=== PATIENT | male | born 1950 | race Two or more races ===

== ENCOUNTER 2017-03-13 07:34 | Day surgery (SDC) | payer MEDICARE ==
[2017-03-09 09:36] VITALS: BMI 27.8
[~2017-03-13 07:34] MED LIST: LACTATED RINGERS 1,000 ML IV SCH
[2017-03-13 07:59] VITALS: TEMP 98.3
[2017-03-13 08:14] LABS: Glucose,Whole Blood 128 mg/dL (75-99)
[2017-03-13] MEDS ORDERED: PROPOFOL 10 MG/ML 20 ML VIAL IV ONE (08:33)
[2017-03-13 09:26] VITALS: BP 129/68; PULSE 53
--- NOTE | 2017-03-13 09:35 | P.PCN ---
Date of Procedure: 03/13/17 Procedure(s) Performed: Procedure: Total colonoscopy. Preoperative diagnosis: Screening for neoplasia. Postoperative diagnosis: Sigmoid diverticulosis with no evidence of acute diverticulitis, strictures, polyps or cancer. Preparation: HalfLytely prep. Sedation: Was provided by anesthesia. Brief clinical history: The patient is a 66-year-old male who is referred for this evaluation for screening for neoplasia age being his risk factor. He has no abdominal complaints, bleeding or anemia. No family history of colon cancer. This would be his first colonoscopy. Procedure: With the patient on his left lateral decubitus position and after informed consent and adequate sedation, the perianal area was inspected and it did not show any fissures or fistulas. There were no masses felt on digital rectal examination. The Olympus CFQ 160L video colonoscope was then inserted in the rectum in the usual fashion and advanced to the cecum. There were several diverticular orifices seen scattered in the sigmoid with no evidence of acute diverticulitis or strictures. The mucosa appeared healthy. No polyps or tumors were seen. I retroflexed the endoscope in the rectum before the endoscope was withdrawn. The patient tolerated the procedure well. Plan: The patient was reassured. Discussed dietary measures. He will follow up with you as planned and I recommended repeat exam in 10 years.
[2017-03-13 09:37] VITALS: RESP 20
== END 2017-03-13 09:46 | disposition home or self-care (01) ==
LOC: ORWHC2ENDO 07:34
DX: Z12.11 Encounter for screening for malignant neoplasm of colon (principal); K57.30 Diverticulosis of large intestine without perforation or abscess without bleeding; E11.9 Type 2 diabetes mellitus without complications; Z79.84 Long term (current) use of oral hypoglycemic drugs; K21.9 Gastro-esophageal reflux disease without esophagitis; I10 Essential (primary) hypertension; E78.5 Hyperlipidemia, unspecified; E07.9 Disorder of thyroid, unspecified; Z87.01 Personal history of pneumonia (recurrent); Z79.82 Long term (current) use of aspirin; Z79.899 Other long term (current) drug therapy; M19.90 Unspecified osteoarthritis, unspecified site; Z88.5 Allergy status to narcotic agent; Z88.0 Allergy status to penicillin
CPT/HCPCS: J2704; G0121; 45378

== ENCOUNTER 2017-07-05 13:27 | Inpatient (IN) | payer MEDICARE ==
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
[2017-07-05] MEDS ORDERED: ACETAMINOPHEN TAB 500 MG TAB PO STA (15:05)
[2017-07-05] MEDS ORDERED: SODIUM CHLORIDE 0.9% 1,000 ML IV STA ×2 (15:05)
[2017-07-05] MEDS ORDERED: MECLIZINE 12.5 MG TAB PO STA (15:05)
[2017-07-05] MEDS ORDERED: RX INFO: IV CONTRAST WAS GIVEN 1 EACH MISC MISCELLANE PRN (15:07)
[2017-07-05 15:19] LABS: Basophils # (A) 0.1 k/uL (0-0.2); Basophils % (A) 1 %; Eosinophils # (A) 0.4 k/uL (0-0.7); Eosinophils % (A) 5 %; HCT 41.7 % (39.0-53.0); Lymphocytes # (A) 1.7 k/uL (1.0-4.8); Lymphocytes % (A) 22 %; MCH 28.8 pg (25.0-35.0); MCHC 33.5 g/dL (31.0-37.0); Mean Platelet Volume 7.2; Monocytes # (A) 0.5 k/uL (0-1.0); Monocytes % (A) 7 %; Neutrophils # (A) 5.2 k/uL (1.3-7.7); Neutrophils % (A) 64 %; Platelet Count 275 k/uL (150-450); RBC 4.85 m/uL (4.30-5.90); RDW 13.8 % (11.5-15.5); WBC 8.1 k/uL (3.8-10.6)
[2017-07-05 15:28] LABS: Calcium 10.1 mg/dL (8.4-10.2); Magnesium 1.7 mg/dL (1.6-2.3); Potassium 4.5 mmol/L (3.5-5.1)
[2017-07-05 15:44] LABS: Appearance,Urine Clear (Clear); Bilirubin,Urine Negative (Negative); Blood,Urine Negative (Negative); Color,Urine Light Yellow; Glucose,Urine (UA) Negative (Negative); Ketones,Urine Negative (Negative); Leukocyte Esterase,Urine Negative (Negative); Nitrite,Urine Negative (Negative); Protein,Urine Negative (Negative); Specific Gravity,Urine 1.002 (1.001-1.035); Urobilinogen,Urine <2.0 mg/dL (<2.0)
[2017-07-05 16:09] LABS: INR 1.1 (<1.2); Partial Thromboplastin Time 24.4 sec (22.0-30.0); Prothrombin Time 10.6 sec (9.0-12.0)
--- NOTE | 2017-07-05 16:32 | CT ---
EXAMINATION TYPE: CT brain wo con DATE OF EXAM: 07/05/2017 COMPARISON: NONE INDICATION: Headache and dizziness. DLP: 898.6 mGycm, Automated exposure control for dose reduction was used. CONTRAST: None CT of the brain is performed utilizing 3 mm thick sections through the posterior fossa and 3 mm thick sections through the remaining calvarium. Study is performed within 24 hours of arrival to the hosp [facility]. No abnormal hyperdensity is present to suggest an acute intracranial hemorrhage. No mass lesion is evident. No acute infarcts are evident. Ventricles and sulci are appropriate for the patient age. Paranasal sinuses are clear. Left mastoid air cells are clear. There is fluid-filled right mastoid air cells. IMPRESSIONS: 1. No acute intracranial process. 2. Right mastoiditis
[2017-07-05] MEDS ORDERED: VANCOMYCIN IV PER PHARMACY 1 EACH MISC MISCELLANE PRN (16:41)
[2017-07-05] MEDS ORDERED: ASPIRIN 325 MG TAB PO STA (16:42)
[2017-07-05] MEDS ORDERED: cefTRIAXone IN SWFI 1,000 MG/10 ML SYRINGE IVP STA (17:05)
[2017-07-05] MEDS ORDERED: VANCOMYCIN 2,000 MG in SODIUM CHLORIDE 0.9% 500 ML IVPB ONE (17:30)
--- NOTE | 2017-07-05 17:43 | XR ---
EXAMINATION TYPE: XR chest 2V DATE OF EXAM: 07/05/2017 COMPARISON: NONE HISTORY: Chest pain. TECHNIQUE: Frontal and lateral views of the chest are obtained. FINDINGS: There is no focal air space opacity, pleural effusion, or pneumothorax seen. The cardiac silhouette size is within normal limits. Multilevel spurring in the spine is present. IMPRESSION: No acute cardiopulmonary process.
[2017-07-05 18:33] VITALS: RESP 16; BMI 30.9
[2017-07-05] MEDS ORDERED: PRAVASTATIN SODIUM 80 MG TAB PO SCH (21:00)
[2017-07-05] MEDS ORDERED: tiZANidine 4 MG TAB PO SCH (21:00)
[2017-07-05] MEDS ORDERED: glipiZIDE 5 MG TAB PO SCH (21:00)
[2017-07-05] MEDS ORDERED: LEVOTHYROXINE 88 MCG TAB PO SCH (21:00)
[2017-07-05] MEDS ORDERED: ASPIRIN 81 MG PO SCH (21:00)
[2017-07-05 21:08] LABS: Glucose,Whole Blood 194 mg/dL (75-99)
[2017-07-05] MEDS ORDERED: MECLIZINE 12.5 MG TAB PO PRN (22:46)
[2017-07-05] MEDS ORDERED: ALBUTEROL NEBULIZED 2.5 MG/3 ML INHALATION PRN (23:06)
[2017-07-05] MEDS ORDERED: HYDROCORTISONE 1% CREAM 30 GM TUBE TOPICAL PRN (23:06)
[2017-07-05] MEDS ORDERED: PIOGLITAZONE 30 MG TAB PO SCH (23:30)
--- NOTE | 2017-07-05 23:38 | HP ---
HISTORY AND PHYSICAL CHIEF COMPLAINT: Dizziness and headache. HISTORY OF PRESENT ILLNESS: This 66-year-old gentleman with a past medical history of multiple medical problems including history of diabetes, GERD, hypertension, hyperlipidemia, history of eye injury left eye, being followed by Dr. Paul in the outpatient setting, was complaining of dizziness which started this morning. The patient was lightheaded and the patient also had vertiginous episodes and patient came to [facility] and was admitted for further evaluation and treatment. The evaluation in the ER showed a creatinine 1.70. Otherwise the patient also had a brain CT scan of the brain which showed apparent right mastoiditis. Otherwise the patient admitted for further evaluation and treatment. There is no history of fever, rigors. No history of headache, loss of consciousness, seizures. The patient also complains of vague chest pains. PAST MEDICAL HISTORY: History of diabetes, GERD, hypertension, hyperlipidemia, history of pneumonia and hypothyroidism. MEDICATIONS: Prior to admission include home medications are: 1. Synthroid 88 mcg. 2. Ecotrin 81 mg daily. 3. Ventolin 2.5 t.i.d. p.r.n. 4. Zanaflex 4 mg q.h.s. 5. DiaBeta 2.5 mg q.h.s. 6. Pravastatin 80 mg q.h.s. 7. Actos 30 mg q.h.s. 8. Hydrocortisone cream 2.5% application b.i.d. p.r.n. 9. Vitamin B12 5000 mcg p.o. daily. 10.Neurontin 300 mg p.o. q.i.d. 11.Glucophage 500 mg p.o. b.i.d. 12.Multivitamin 1 p.o. daily. 13.Metoprolol 25 mg p.o. b.i.d. 14.Vitamin D3 1000 units daily. 15.Vitamin C 500 mg p.o. daily. ALLERGIES: PENICILLIN. DILAUDID. FAMILY HISTORY: History of cancer, DVT. SOCIAL HISTORY: History of smoking. No history of alcohol intake. REVIEW OF SYSTEMS: ENT as mentioned earlier. Cardiovascular: No angina or palpitations. Respiratory: As mentioned earlier. GI no nausea. no dysuria. Allergy/Immunology: No asthma or hayfever. Musculoskeletal as mentioned earlier. Hematology/Oncology: No history of anemia. Endocrine: As mentioned earlier. CONSTITUTIONAL: As mentioned earlier. DERMATOLOGY: Negative. RHEUMATOLOGY: Negative. PSYCHIATRY: As mentioned earlier. Nervous system: No sensory dysfunction, but vision diminished in the left eye and left eye pupils are dilated. LABORATORY DATA: The labs are CBC within normal limits. Creatinine 1.70. ASSESSMENT: 1. Vertigo with possible benign positional vertigo, rule out vertebrobasilar transient ischemic attack. 2. Increased creatinine with chronic kidney disease. 3. Possible right mastoiditis. 4. Chest pains for evaluation. 5. Hypertension. 6. Diabetes mellitus Type 2. 7. Hyperlipidemia. 8. Degenerative joint disease. 9. History of pneumonia. 10.History of left eye injury. 11.History of nicotine dependence. RECOMMENDATIONS AND DISCUSSION: In this 66-year-old gentleman who presented with multiple complex medical issues, we will monitor the patient closely. Continue the current medications, management and symptomatic treatment. Otherwise resume the home medications and I will continue the continue the current medications and monitor blood sugars closely. Antiplatelet agents. I would also recommend Antivert. Otherwise continue to monitor and neurology and Cardiology consultation. Neurology and cardiology evaluation has been sought. See orders for details. Medication reconciliation has been done. Prognosis guarded. Further recommendations to follow. MMODL / IJN: [id number] /
[2017-07-05] MEDS: INSULIN ASPART 100 UNIT/ML 1 ML 10 ML VIAL SQ SCH (23:53)
[2017-07-05] MEDS: METOPROLOL TARTRATE 25 MG TAB PO SCH (23:54)
[2017-07-05] MEDS: GABAPENTIN 300 MG CAP PO SCH (23:55)
[2017-07-06 01:01] LABS: Hemoglobin A1C 7.6 % (4.0-6.0)
[2017-07-06 06:23] LABS: Glucose,Whole Blood 79 mg/dL (75-99)
[2017-07-06] MEDS: INSULIN ASPART 100 UNIT/ML 1 ML 10 ML VIAL SQ SCH ×4 (06:36→17:20)
[2017-07-06 06:48] LABS: Basophils # (A) 0.1 k/uL (0-0.2); Basophils % (A) 1 %; Eosinophils # (A) 0.4 k/uL (0-0.7); Eosinophils % (A) 5 %; HCT 38.9 % (39.0-53.0); Lymphocytes % (A) 28 %; MCH 29.1 pg (25.0-35.0); MCHC 33.5 g/dL (31.0-37.0); MCV 86.8 fL (80.0-100.0); Mean Platelet Volume 6.9; Monocytes # (A) 0.4 k/uL (0-1.0); Monocytes % (A) 6 %; Neutrophils % (A) 57 %; Platelet Count 253 k/uL (150-450); RBC 4.48 m/uL (4.30-5.90); RDW 14.1 % (11.5-15.5); WBC 7.1 k/uL (3.8-10.6)
[2017-07-06 06:59] LABS: Calcium 9.8 mg/dL (8.4-10.2); Potassium 4.8 mmol/L (3.5-5.1)
[2017-07-06] MEDS: METOPROLOL TARTRATE 25 MG TAB PO SCH (08:18)
[2017-07-06] MEDS: MECLIZINE 12.5 MG TAB PO SCH ×2 (08:18→16:13)
[2017-07-06] MEDS: GABAPENTIN 300 MG CAP PO SCH ×2 (08:18→12:55)
[2017-07-06] MEDS ORDERED: cefTRIAXone IN SWFI 1,000 MG/10 ML SYRINGE IVP SCH (09:00)
[2017-07-06] MEDS ORDERED: ASCORBIC ACID 500 MG TAB PO SCH (09:00)
[2017-07-06 11:59] LABS: Glucose,Whole Blood 110 mg/dL (75-99)
[2017-07-06] MEDS ORDERED: MULTIVITAMINS, THERA 1 EACH TAB PO SCH (12:00)
[2017-07-06] MEDS ORDERED: CYANOCOBALAMIN 500 MCG TAB PO SCH (12:00)
[2017-07-06] MEDS ORDERED: CHOLECALCIFEROL 1,000 UNIT TAB PO SCH (12:00)
--- NOTE | 2017-07-06 12:49 | P.CRDCN ---
History of Present Illness Consult date: 07/06/17 Requesting physician: [place] Consult reason: chest pain Chief complaint: Dizziness and lightheadedness, chest pain History of present illness: This is a pleasant 66-year-old gentleman who follows with as his primary care doctor. He does have a history of hypertension, diabetes, hyperlipidemia, nicotine dependence in the form of type smoking, occasional EtOH. According to the patient, he had been working outside on Sunday feeling well overall. He went to sit in his chair outside, had a rest, then he states upon standing he was trying to walk into the house and felt as though he was in a drunken stupor. He was very dizzy, very lightheaded, and had no balance. These symptoms apparently lasted the rest of the day Sunday, all day yesterday, and ultimately subsided this morning. When the patient was questioned about his primary care doctor's office about the symptoms he's been experiencing, he also states that for the past few months off and on he has been noticing exertional chest pressure and heaviness with associated shortness of breath. He states that when he sits down and rests his symptoms subside. A CAT scan of the brain was performed on arrival here which revealed right mastoiditis with no intracranial process. Patient was started on IV antibiotics in the emergency room. Chest x-ray did not reveal any cardiopulmonary process. Blood pressure 130/60 with a heart rate in the 50s to 60s, 98% on room air. Temperature 98.5. White blood cell count is normal, hemoglobin 13, platelet count 253. Sodium 144, potassium 4.8, BUN 26, creatinine 1.7. Mag level I.7, troponin 0.012. EKG on arrival here showed a sinus bradycardia with first-degree AV block, no acute changes noted. At the time of my examination this morning, patient back to his normal self. Past Medical History Past Medical History: Diabetes Mellitus, Eye Disorder, GERD/Reflux, Hyperlipidemia, Hypertension, Osteoarthritis (OA), Pneumonia, Thyroid Disorder Additional Past Medical History / Comment(s): eye injury to left eye "stick injury to eye"-inijured retina and has gas bubble in eye, History of Any Multi-Drug Resistant Organisms: None Reported Past Surgical History: Adenoidectomy, Tonsillectomy Additional Past Surgical History / Comment(s): 5 surgeries for pilonidal cyst, surgery on left eye from injury-lens implant Past Anesthesia/Blood Transfusion Reactions: No Reported Reaction Past Psychological History: No Psychological Hx Reported Smoking Status: Current every day smoker Past Alcohol Use History: None Reported Additional Past Alcohol Use History / Comment(s): smokes a pipe-1 package tobacco lasts 1 week- tobacco use since age 18 Past Drug Use History: None Reported - Past Family History Father Family Medical History: Cancer, Deep Vein Thrombosis (DVT) Medications and Allergies Home Medications Medication Instructions Recorded Confirmed Type Albuterol Nebulized [Ventolin 2.5 mg INHALATION RT-TID PRN 12/21/16 07/05/17 History Nebulized] Aspirin EC [Ecotrin Low Dose] 81 mg PO HS 12/21/16 07/05/17 History Gabapentin [Neurontin] 300 mg PO QID 12/21/16 07/05/17 History Levothyroxine Sodium [Synthroid] 88 mcg PO HS 12/21/16 07/05/17 History Multivit-Min/FA/Lycopen/Lutein 1 tab PO DAILY 12/21/16 07/05/17 History [Centrum Silver Tablet] glyBURIDE [Diabeta] 2.5 mg PO HS 12/21/16 07/05/17 History tiZANidine [Zanaflex] 4 mg PO HS 12/21/16 07/05/17 History Ascorbic Acid [Vitamin C] 500 mg PO DAILY 03/09/17 07/05/17 History Cholecalciferol [Vitamin D3] 1,000 unit PO DAILY 03/09/17 07/05/17 History Metoprolol Tartrate 25 mg PO BID 03/09/17 07/05/17 History Pioglitazone [Actos] 30 mg PO HS 03/09/17 07/05/17 History Pravastatin Sodium 80 mg PO HS 03/09/17 07/05/17 History metFORMIN HCL [Glucophage] 500 mg PO BID 03/09/17 07/05/17 History Cyanocobalamin (Vitamin B-12) 5,000 mcg PO DAILY 07/05/17 07/05/17 History [Vitamin B12] Hydrocortisone Cream 1 applic TOPICAL BID PRN 07/05/17 07/05/17 History [Hydrocortisone 2.5% Cream] Meclizine [Antivert] 12.5 mg PO TID #15 tab 07/06/17 Rx Sulfamethox-Tmp 800-160Mg [Bactrim 1 tab PO Q12HR #10 tab 07/06/17 Rx DS 800-160 mg] Allergies Allergy/AdvReac Type Severity Reaction Status Date / Time Penicillins Allergy Unknown Verified 07/05/17 14:35 Childhood hydromorphone [From Dilaudid] AdvReac Hallucinati Verified 07/05/17 14:35 ons Physical Exam Vitals: Vital Signs Temp Pulse Pulse Resp BP BP BP 07/06/17 08:00 98.5 F 62 16 130/65 07/06/17 04:00 97.3 F L 56 L 16 123/60 07/06/17 00:00 97.6 F 63 16 147/67 07/05/17 20:00 58 L 16 07/05/17 18:26 97.8 F 55 L 16 170/77 149/66 07/05/17 18:14 97.0 F L 50 L 18 159/72 07/05/17 17:33 45 L 18 172/75 07/05/17 16:41 46 L 18 144/70 07/05/17 15:37 43 L 16 145/72 07/05/17 13:39 98.0 F 50 L 18 140/69 Pulse Ox 07/06/17 08:00 98 07/06/17 04:00 98 07/06/17 00:00 99 07/05/17 20:00 07/05/17 18:26 100 07/05/17 18:14 97 07/05/17 17:33 100 07/05/17 16:41 100 07/05/17 15:37 100 07/05/17 13:39 99 Intake and Output 07/05/17 07/06/17 07/06/17 22:59 06:59 14:59 Intake Total 360 Balance 360 Intake: Oral 360 Other: # Voids 1 1 2 Weight 103.6 kg 101.1 kg PHYSICAL EXAMINATION: HEENT: Head is atraumatic, normocephalic. Pupils equal, round. Neck is supple. There is no elevated jugular venous pressure. HEART EXAMINATION: Heart S1, S2 normal. No murmur or gallop heard. CHEST EXAMINATION: Lungs are clear to auscultation and precussion. No chest wall tenderness is noted on palpation or with deep breathing. ABDOMEN: Soft, nontender. Bowel sounds are heard. No organomegaly noted. EXTREMITIES: 2+ peripheral pulses with no evidence of peripheral edema and no calf tenderness noted. NEUROLOGIC patient is awake, alert and oriented -3. . Results 07/06/17 06:00 07/06/17 06:00 Cardiac Enzymes 07/05/17 Range/Units 15:00 Troponin I <0.012 (0.000-0.034) ng/mL Coagulation 07/05/17 Range/Units 15:45 PT 10.6 (9.0-12.0) sec APTT 24.4 (22.0-30.0) sec CBC 07/05/17 07/06/17 Range/Units 15:00 06:00 WBC 8.1 7.1 (3.8-10.6) k/uL RBC 4.85 4.48 (4.30-5.90) m/uL Hgb 14.0 13.0 (13.0-17.5) gm/dL Hct 41.7 38.9 L (39.0-53.0) % Plt Count 275 253 (150-450) k/uL Comprehensive Metabolic Panel 07/05/17 07/06/17 Range/Units 15:00 06:00 Sodium 140 144 (137-145) mmol/L Potassium 4.5 4.8 (3.5-5.1) mmol/L Chloride 103 108 H (98-107) mmol/L Carbon Dioxide 24 25 (22-30) mmol/L BUN 28 H 26 H (9-20) mg/dL Creatinine 1.70 H 1.72 H (0.66-1.25) mg/dL Glucose 137 H 72 L (74-99) mg/dL Calcium 10.1 9.8 (8.4-10.2) mg/dL Current Medications Generic Name Dose Route Start Last Admin Trade Name Freq PRN Reason Stop Dose Admin Albuterol Sulfate 2.5 mg 07/05/17 23:06 Ventolin Nebulized INHALATION RT-TID PRN Shortness Of Breath Ascorbic Acid 500 mg 07/06/17 09:00 07/06/17 08:17 Vitamin C PO 500 mg DAILY SIDDHARTHA Administration Aspirin 81 mg 07/05/17 21:00 07/05/17 23:53 Aspirin PO 81 mg HS SIDDHARTHA Administration Ceftriaxone Sodium 1,000 mg 07/06/17 09:00 07/06/17 08:17 Rocephin IVP 1,000 mg Q24H SIDDHARTHA Administration Cholecalciferol 1,000 unit 07/06/17 12:00 Vitamin D3 PO DAILY@1200 [facility] Cyanocobalamin 5,000 mcg 07/06/17 12:00 Vitamin B-12 PO DAILY@1200 [facility] Gabapentin 300 mg 07/05/17 22:00 07/06/17 08:18 Neurontin PO 300 mg QID [facility] Administration Glipizide 5 mg 07/05/17 21:00 07/05/17 23:53 Glucotrol PO 5 mg HS SIDDHARTHA Administration Hydrocortisone 1 applic 07/05/17 23:06 Hydrocortisone 1% Cream TOPICAL BID PRN Rash Vancomycin HCl 1,750 mg/ 250 mls @ 125 mls/hr 07/06/17 17:00 Sodium Chloride IVPB Q24H [facility] Insulin Aspart 0 unit 07/05/17 21:00 07/06/17 07:43 Novolog SQ Not Given ACHS [facility] Protocol Levothyroxine Sodium 88 mcg 07/05/17 21:00 07/05/17 23:54 Synthroid PO 88 mcg HS [facility] Administration Meclizine HCl 12.5 mg 07/06/17 09:00 07/06/17 08:18 Antivert PO 12.5 mg TID [facility] Administration Metoprolol Tartrate 25 mg 07/05/17 21:00 07/06/17 08:18 Lopressor PO 25 mg BID SIDDHARTHA Administration Miscellaneous Information 1 each 07/05/17 15:07 Rx Info: Iv Contrast Was Given MISCELLANE 07/07/17 15:07 DAILY PRN Per Protocol Multivitamins 1 each 07/06/17 12:00 Theragran PO DAILY@1200 [facility] Pioglitazone HCl 30 mg 07/05/17 23:30 07/06/17 00:00 Actos PO 30 mg HS [facility] Administration Pravastatin Sodium 80 mg 07/05/17 21:00 07/05/17 23:54 Pravachol PO 80 mg HS [facility] Administration Tizanidine HCl 4 mg 07/05/17 21:00 07/05/17 23:54 Zanaflex PO 4 mg HS SIDDHARTHA Administration Intake and Output 07/05/17 07/06/17 07/06/17 22:59 06:59 14:59 Intake Total 360 Balance 360 Intake: Oral 360 Other: # Voids 1 1 2 Weight 103.6 kg 101.1 kg 07/06/17 06:00 07/06/17 06:00 EKG Interpretations (text) EKG shows a sinus bradycardia with first-degree AV block. Assessment and Plan Plan: Assessment and plan #1 vertigo, likely secondary to right mastoiditis, patient currently on IV antibiotics #2 recent symptoms of exertional chest heaviness and shortness of breath, suggestive of possible angina. EKG shows a sinus bradycardia with first-degree AV block. Troponin negative. #3 diabetes #4 hypertension #5 hyperlipidemia #6 nicotine dependence in the form of pipe smoking #7 acute on chronic renal insufficiency #8 hypothyroidism. Plan We will obtain 2 subsequent troponins, we will also request an echocardiogram with Doppler study be performed. Continue a baby aspirin, metoprolol 25 mg one tablet by mouth twice a day, pravastatin 80 mg daily, we will also start the patient on an VICKI inhibitor. Once the patient's vertigo symptoms have completely resolved, and antibiotics for the mastoiditis have been completed. Patient may benefit from further workup to rule out underlying coronary artery disease. Further recommendations to follow. DNP note has been reviewed, I agree with a documented findings and plan of care. Patient was seen and examined.
[2017-07-06] MEDS ORDERED: EZETIMIBE 10 MG TAB PO SCH (14:00)
--- NOTE | 2017-07-06 15:26 | MR ---
EXAMINATION TYPE: MR brain wo/w con DATE OF EXAM: 07/06/2017 COMPARISON: CT brain dated 07/05/2017 HISTORY: Dizziness TECHNIQUE: Multiplanar, multisequence images of the brain and brainstem is performed without and with IV contras t, utilizing 10 mL intravenous Gadavist . FINDINGS: Diffusion weighted images demonstrate no evidence of a recent infarct or other diffusion ab normality. There is no extra-axial fluid collection. The ventricular system and cisternal spaces ar e normal in size and appearance. Very mild nonspecific white matter T2/FLAIR hyperintensity are seen most pronounced within the left periatrial white matter. The brain volume is age appropriate. Midline structures demonstrate normal morphology. The craniocervical junction appears within normal limits. Post contrast images demonstrate no abnormal enhancement. The dural venous sinuses appear pa tent. There is redemonstration of near complete opacification of the right mastoid air cells. Minimal mucosal thickening is seen within the ethmoid sinuses. Remaining paranasal sinuses and left mastoid air cells are well aerated. Scleral banding is seen of the left orbit. IMPRESSION: 1. No evidence of acute territorial infarct, abnormal intracranial enhancement, or mass effect. 2. Findings again suggestive of right-sided mastoiditis near-complete opacification of the right mast oid air cells. Correlate clinically for pain. 3. Very mild periventricular nonspecific white matter, likely related to microangiopathy.
--- NOTE | 2017-07-06 16:37 | P.CONS ---
History of Present Illness - Reason for Consult Consult date: 07/06/17 Vertigo - Chief Complaint Vertigo - History of Present Illness Is a pleasant 66-year-old male being evaluated by the neurology service for vertigo. He has medical history significant for diabetes, hypertension, GERD, hyperlipidemia, and significant left eye injury with decreased vision. He does have a previous history of mild or vertigo symptoms that were very infrequent. 3 days ago he had acute onset of more severe vertigo that lasted up until yesterday with his first dose of Antivert. CT of the brain showed no acute intracranial abnormalities. MRI of the brain confirmed no ischemic events but did show severe right-sided mastoiditis. ENT has been consult. Cardiology is on board. They will continue to evaluate him for an abnormal EKG with serial troponins. At this time my evaluation is resting comfortably in bed in no acute distress. Review of Systems Constitutional: Reports as per HPI Past Medical History Past Medical History: Diabetes Mellitus, Eye Disorder, GERD/Reflux, Hyperlipidemia, Hypertension, Osteoarthritis (OA), Pneumonia, Thyroid Disorder Additional Past Medical History / Comment(s): eye injury to left eye "stick injury to eye"-inijured retina and has gas bubble in eye, History of Any Multi-Drug Resistant Organisms: None Reported Past Surgical History: Adenoidectomy, Tonsillectomy Additional Past Surgical History / Comment(s): 5 surgeries for pilonidal cyst, surgery on left eye from injury-lens implant Past Anesthesia/Blood Transfusion Reactions: No Reported Reaction Past Psychological History: No Psychological Hx Reported Smoking Status: Current every day smoker Past Alcohol Use History: None Reported Additional Past Alcohol Use History / Comment(s): smokes a pipe-1 package tobacco lasts 1 week- tobacco use since age 18 Past Drug Use History: None Reported - Past Family History Father Family Medical History: Cancer, Deep Vein Thrombosis (DVT) Medications and Allergies Home Medications Medication Instructions Recorded Confirmed Type Albuterol Nebulized [Ventolin 2.5 mg INHALATION RT-TID PRN 12/21/16 07/05/17 History Nebulized] Aspirin EC [Ecotrin Low Dose] 81 mg PO HS 12/21/16 07/05/17 History Gabapentin [Neurontin] 300 mg PO QID 12/21/16 07/05/17 History Levothyroxine Sodium [Synthroid] 88 mcg PO HS 12/21/16 07/05/17 History Multivit-Min/FA/Lycopen/Lutein 1 tab PO DAILY 12/21/16 07/05/17 History [Centrum Silver Tablet] glyBURIDE [Diabeta] 2.5 mg PO HS 12/21/16 07/05/17 History tiZANidine [Zanaflex] 4 mg PO HS 12/21/16 07/05/17 History Ascorbic Acid [Vitamin C] 500 mg PO DAILY 03/09/17 07/05/17 History Cholecalciferol [Vitamin D3] 1,000 unit PO DAILY 03/09/17 07/05/17 History Metoprolol Tartrate 25 mg PO BID 03/09/17 07/05/17 History Pioglitazone [Actos] 30 mg PO HS 03/09/17 07/05/17 History Pravastatin Sodium 80 mg PO HS 03/09/17 07/05/17 History metFORMIN HCL [Glucophage] 500 mg PO BID 03/09/17 07/05/17 History Cyanocobalamin (Vitamin B-12) 5,000 mcg PO DAILY 07/05/17 07/05/17 History [Vitamin B12] Hydrocortisone Cream 1 applic TOPICAL BID PRN 07/05/17 07/05/17 History [Hydrocortisone 2.5% Cream] Meclizine [Antivert] 12.5 mg PO TID #15 tab 07/06/17 Rx Sulfamethox-Tmp 800-160Mg [Bactrim 1 tab PO Q12HR #10 tab 07/06/17 Rx DS 800-160 mg] Allergies Allergy/AdvReac Type Severity Reaction Status Date / Time Penicillins Allergy Unknown Verified 07/05/17 14:35 Childhood hydromorphone [From Dilaudid] AdvReac Hallucinati Verified 07/05/17 14:35 ons Physical Exam Vitals: Vital Signs Temp Pulse Pulse Resp BP BP BP 07/06/17 12:00 97.4 F L 52 L 16 143/68 07/06/17 08:00 98.5 F 62 16 130/65 07/06/17 04:00 97.3 F L 56 L 16 123/60 07/06/17 00:00 97.6 F 63 16 147/67 07/05/17 20:00 58 L 16 07/05/17 18:26 97.8 F 55 L 16 170/77 149/66 07/05/17 18:14 97.0 F L 50 L 18 159/72 07/05/17 17:33 45 L 18 172/75 07/05/17 16:41 46 L 18 144/70 Pulse Ox 07/06/17 12:00 99 07/06/17 08:00 98 07/06/17 04:00 98 07/06/17 00:00 99 07/05/17 20:00 07/05/17 18:26 100 07/05/17 18:14 97 07/05/17 17:33 100 07/05/17 16:41 100 Intake and Output 07/06/17 07/06/17 07/06/17 06:59 14:59 22:59 Intake Total 600 Balance 600 Intake: Oral 600 Other: # Voids 1 2 Weight 101.1 kg - Constitutional General appearance: average body habitus, cooperative, no acute distress - EENT Left pupil is persistently dilated from previous trauma and surgery Eyes: abnormal pupil, no ptosis ENT: hard of hearing - Neck Neck: normal ROM, no rigidity - Respiratory Respiratory: negative: prolonged expiration, prolonged inspiration - Cardiovascular Rhythm: regular - Gastrointestinal General gastrointestinal: no distended, no tenderness - Neurologic The patient is alert awake and oriented 3. Speech and language are normal. There is no facial asymmetry. Strength is 5 out of 5 in bilateral upper and lower extremities. There is no sensory deficit. No tremors or seizures are seen. Cranial nerves II through XII are intact globally except for findings stated above. There is no pronator drift or dysmetria. No nystagmus. Results CBC & Chem 7: 07/06/17 06:00 07/06/17 06:00 Labs: Abnormal Lab Results - Last 24 Hours (Table) 07/05/17 07/05/17 07/06/17 Range/Units 15:00 21:04 06:00 Hct 38.9 L (39.0-53.0) % Chloride (98-107) mmol/L BUN (9-20) mg/dL Creatinine (0.66-1.25) mg/dL Glucose (74-99) mg/dL POC Glucose (mg/dL) 194 H (75-99) mg/dL Hemoglobin A1c 7.6 H (4.0-6.0) % 07/06/17 07/06/17 Range/Units 06:00 11:38 Hct (39.0-53.0) % Chloride 108 H (98-107) mmol/L BUN 26 H (9-20) mg/dL Creatinine 1.72 H (0.66-1.25) mg/dL Glucose 72 L (74-99) mg/dL POC Glucose (mg/dL) 110 H (75-99) mg/dL Hemoglobin A1c (4.0-6.0) % Assessment and Plan (1) Hypertension Current Visit: Yes Status: Chronic Code(s): I10 - ESSENTIAL (PRIMARY) HYPERTENSION SNOMED Code(s): 19057205 (2) Hyperlipidemia Current Visit: Yes Status: Chronic Code(s): E78.5 - HYPERLIPIDEMIA, UNSPECIFIED SNOMED Code(s): 27489708 (3) Diabetes Current Visit: Yes Status: Chronic Code(s): E11.9 - TYPE 2 DIABETES MELLITUS WITHOUT COMPLICATIONS SNOMED Code(s): 80488031 (4) Angina at rest Current Visit: Yes Status: Suspected Code(s): I20.8 - OTHER FORMS OF ANGINA PECTORIS SNOMED Code(s): 110782928 (5) Mastoiditis Current Visit: Yes Status: Acute Code(s): H70.90 - UNSPECIFIED MASTOIDITIS, UNSPECIFIED EAR SNOMED Code(s): 73633308 (6) Vertigo Current Visit: Yes Status: Acute Code(s): R42 - DIZZINESS AND GIDDINESS SNOMED Code(s): 701841765 Plan: This patient's symptoms are consistent with a peripheral type of vertigo. His studies have been negative for any intracranial pathology. He will follow-up with ENT for his right-sided mastoiditis. Recommend continuation with meclizine as needed. He may need outpatient testing for determination of vestibular versus central etiologies for his vertigo. He is otherwise cleared from a neurological standpoint. I have performed a history and physical on the above patient. I have reviewed the above note, and agree.
[2017-07-06 16:53] LABS: Glucose,Whole Blood 122 mg/dL (75-99)
[2017-07-06] MEDS ORDERED: VANCOMYCIN 1,750 MG in SODIUM CHLORIDE 0.9% 250 ML IVPB SCH (17:00)
[2017-07-06 18:23] VITALS: BP 130/71; PULSE 58; TEMP 97.1
--- NOTE | 2017-07-06 19:27 | DS ---
DISCHARGE SUMMARY FINAL DIAGNOSES: 1. Vertigo with possible benign positional vertigo, improved. 2. Increased creatinine with chronic kidney disease, stage III. 3. Possible right mastoiditis. 4. Chest pain. Myocardial infarction ruled out. 5. Hypertension. 6. Diabetes mellitus, type 2. 7. Hyperlipidemia. 8. Degenerative joint disease. 9. History of pneumonia. 10.History of left eye injury. 11.History of nicotine dependence. DISCHARGE DISPOSITION: The patient will be discharged in stable condition with guarded prognosis. HISTORY OF PRESENT ILLNESS: This 66-year-old gentleman with a past medical history of multiple medical problems, being followed by Dr. Paul in the outpatient setting, was admitted with dizziness and headache as well as some chest pains. Myocardial infarction was ruled out. Patient's MRI was normal. The patient will be discharged in stable condition with guarded prognosis. Cardiology saw the patient and recommended outpatient followup. DISCHARGE ADVICE AND MEDICATIONS: 1. Diet is cardiac. 2. Activity limited until followup. 3. Follow up with Dr. Ferrari in one week. 4. Follow up with Dr. Paul in 2 to 3 days. 5. Follow up with Dr. Lindsay in 3 weeks. 6. Ventolin 2.5 q.i.d. p.r.n. 7. Vitamin C 500 mg p.o. daily. 8. Ecotrin 81 mg at bedtime. 9. Vitamin D3 1000 daily. 10.Vitamin B12 5000 mcg p.o. daily. 11.Neurontin 300 mg p.o. q.i.d. 12.DiaBeta 2.5 mg at bedtime. 13.Hydrocortisone cream for local application. 14.Synthroid 88 mcg p.o. at bedtime. 15.Antivert 12.5 mg t.i.d. 16.Glucophage 500 mg p.o. b.i.d. 17.Metoprolol 25 mg p.o. b.i.d. 18.Multivitamins 1 p.o. daily. 19.Actos 30 mg at bedtime. 20.Pravastatin 80 mg at bedtime. 21.Bactrim DS 1 p.o. b.i.d. for 5 days. 22.Zanaflex 4 mg p.o. at bedtime. Once again, the patient will be discharged in stable condition with guarded prognosis. MMODL / IJN: [id number] /
[2017-07-07] MEDS ORDERED: LOSARTAN 25 MG TAB PO SCH (09:00)
--- NOTE | 2017-07-08 12:50 | ECHOF ---
Referral Reason:chest pain MEASUREMENTS -------- HEIGHT: 182.9 cm WEIGHT: 100.7 kg BP: 130/65 RVIDd: 3.2 cm (< 3.3) IVSd: 1.0 cm (0.6 - 1.1) LVIDd: 3.9 cm (3.9 - 5.3) LVPWd: 1.0 cm (0.6 - 1.1) IVSs: 1.6 cm LVIDs: 2.5 cm LVPWs: 1.5 cm LAESV Index (A-L): 30.16 ml/m Ao Diam: 3.4 cm (2.0 - 3.7) AV Cusp: 2.2 cm (1.5 - 2.6) LA Diam: 3.3 cm (2.7 - 3.8) EPSS: 0.4 cm MV E Bryson: 0.66 m/s MV DecT: 325 ms MV A Bryson: 0.76 m/s MV E/A Ratio: 0.87 RAP: 5.00 mmHg RVSP: 26.15 mmHg MV EF SLOPE: 130.14 mm/s (70 - 150) MV EXCURSION: 2.63 cm (> 18.000) FINDINGS -------- Sinus rhythm. This was a technically adequate study. The left ventricular size is normal. Left ventricular wall thickness is normal. Overall left vent ricular systolic function is normal with, an EF between 55 - 60 %. The right ventricle is normal in size and function. LA is midly dilated 29-33ml/m2. The right atrium is normal in size. Aortic valve is trileaflet and is mildly thickened. There is no evidence of aortic regurgitation. There is no evidence of aortic stenosis. The mitral valve leaflets are mildly thickened. Mild mitral annular calcification present. There is trace to mild mitral regurgitation. Trace tricuspid regurgitation present. Right ventricular systolic pressure is normal at < 35 mmHg. There is no evidence of pulmonary hypertension. Trace/mild (physiologic) pulmonic regurgitation. The aortic root size is normal. Normal inferior vena cava with normal inspiratory collapse consistent with estimated right atrial pre ssure of 5 mmHg. There is no pericardial effusion. CONCLUSIONS -------- 1. Sinus rhythm. 2. This was a technically adequate study. 3. The left ventricular size is normal. 4. Left ventricular wall thickness is normal. 5. Overall left ventricular systolic function is normal with, an EF between 55 - 60 %. 6. LA is midly dilated 29-33ml/m2. 7. Aortic valve is trileaflet and is mildly thickened. 8. The mitral valve leaflets are mildly thickened. 9. Mild mitral annular calcification present. 10. There is trace to mild mitral regurgitation. 11. Trace tricuspid regurgitation present. 12. Right ventricular systolic pressure is normal at < 35 mmHg. 13. There is no evidence of pulmonary hypertension. 14. The aortic root size is normal. 15. There is no pericardial effusion. [employer]: Wolfgang Menjivar RDCS
== END 2017-07-06 18:38 | disposition home or self-care (01) | DRG 149 ==
LOC: EC 13:27 → 6SEL 17:14
PROVIDERS: ADMIT Hospitalist; ATTEND Hospitalist
DX: H81.10 Benign paroxysmal vertigo, unspecified ear (principal); H70.91 Unspecified mastoiditis, right ear; E11.22 Type 2 diabetes mellitus with diabetic chronic kidney disease; E78.00 Pure hypercholesterolemia, unspecified; E03.9 Hypothyroidism, unspecified; E78.5 Hyperlipidemia, unspecified; R07.9 Chest pain, unspecified; F17.290 Nicotine dependence, other tobacco product, uncomplicated; H54.62 Unqualified visual loss, left eye, normal vision right eye; H91.92 Unspecified hearing loss, left ear; I12.9 Hypertensive chronic kidney disease with stage 1 through stage 4 chronic kidney disease, or unspecified chronic kidney disease; I44.0 Atrioventricular block, first degree; K21.9 Gastro-esophageal reflux disease without esophagitis; M19.90 Unspecified osteoarthritis, unspecified site; N18.3 Chronic kidney disease, stage 3 (moderate); R00.1 Bradycardia, unspecified; R51 Headache; Z79.84 Long term (current) use of oral hypoglycemic drugs; Z79.899 Other long term (current) drug therapy; Z79.82 Long term (current) use of aspirin; Z79.890 Hormone replacement therapy; Z88.5 Allergy status to narcotic agent; Z88.0 Allergy status to penicillin; Z87.01 Personal history of pneumonia (recurrent); Z80.9 Family history of malignant neoplasm, unspecified; Z83.2 Family history of diseases of the blood and blood-forming organs and certain disorders involving the immune mechanism
CPT/HCPCS: 36415; 70450; 70553; 71046; 80048; 81003; 83036; 83735; 84443; 84484; 85025; 85610; 85730; 93005; 93306; 96361; 96374; 99285

== ENCOUNTER → 2017-11-07 | Outpatient (CLI) | payer MEDICARE ==
--- NOTE | 2017-11-07 17:41 | CT ---
EXAMINATION TYPE: CT iac wo/w con DATE OF EXAM: 11/07/2017 COMPARISON: None HISTORY: Chronic right side mastoiditis. CT DLP: 470 mGycm Automated exposure control for dose reduction was used. CONTRAST: CT scan of the IACs is performed without and with IV Contrast, patient injected with 80ml mL of Isovu e M300. FINDINGS: There is no pneumatization of the right mastoid sinus. There is incomplete pneumatization l eft mastoid sinus. The external auditory canals appear normal. There is no evidence of a cerebellopon kirt angle mass. There is opacification of the epitympanic recess on the right side. There is also co mplete opacification right middle ear cavity. There is normal aeration of the left side epitympanic r ecess and middle ear. I see no focal bone destruction. The internal auditory canals appear normal. IMPRESSION: There are changes of chronic right-sided mastoiditis. Opacification of the right middle e ar and epitympanic recess consistent with chronic otitis interna. No focal bone destruction.
== END | disposition home or self-care (01) ==
LOC: RADCTMAIN 14:37
PROVIDERS: ATTEND Family Medicine
DX: H70.11 Chronic mastoiditis, right ear (principal); E11.22 Type 2 diabetes mellitus with diabetic chronic kidney disease; N18.9 Chronic kidney disease, unspecified
CPT/HCPCS: 82565; 84520; 70482; 36415; Q9967

== ENCOUNTER → 2018-04-17 | Outpatient (CLI) | payer MEDICARE ==
--- NOTE | 2018-04-17 17:10 | XR ---
EXAMINATION TYPE: XR ribs LT w pa chest xray DATE OF EXAM: 04/17/2018 COMPARISON: Chest x-ray 07/05/2017 HISTORY: Injury to the thorax left rib pain following fall over tree TECHNIQUE: Chest examined in the frontal views. Left ribs are examined in 2 projections. FINDINGS: Left ribs appear intact. No displaced rib fractures are evident. No suspicious infiltrates are present. Very tiny densities within the periphery of the right midlung may have been present previously. Confirmation of stability over 2 years is recommended. IMPRESSION: 1. No acute left rib abnormality. 2. No pneumothorax. 3. Punctate nodularity to the right scapula measuring 0.3 cm. Follow-up exam in 6 months is recommend ed to confirm stability.
== END | disposition home or self-care (01) ==
LOC: RADXRYALE 09:43
PROVIDERS: ATTEND Physician Assistant Medical
DX: S29.9XXA Unspecified injury of thorax, initial encounter (principal)

== ENCOUNTER → 2019-03-27 | Outpatient (CLI) | payer MEDICARE ==
--- NOTE | 2019-03-28 08:12 | US ---
EXAMINATION TYPE: US kidneys/renal and bladder DATE OF EXAM: 03/27/2019 COMPARISON: NONE CLINICAL HISTORY: N18.3 chronic kidney disease stage 3. abn labs, no symptoms EXAM MEASUREMENTS: Right Kidney: 11.2 x 5.6 x 5.8 cm Left Kidney: 11.9 x 4.5 x 4.6 cm Right Kidney: No hydronephrosis or masses seen Left Kidney: No hydronephrosis or masses seen Bladder: 0.9mm wall measurement There is no evidence for hydronephrosis at this point in time. No nephrolithiasis is seen. No ingrid s are identified. The urinary bladder is anechoic. Bilateral ureteral jets are seen. IMPRESSION: 1. Urinary bladder wall thickening is circumferential and may relate to incomplete distention of the urinary bladder. Correlation with urinalysis is recommended. 2. No hydronephrosis or nephrolithiasis of either kidney. No sonographic sequela of chronic medical r enal disease.
== END | disposition home or self-care (01) ==
LOC: RADUSWWP 16:01
PROVIDERS: ATTEND Family Medicine
DX: N32.89 Other specified disorders of bladder (principal); I12.9 Hypertensive chronic kidney disease with stage 1 through stage 4 chronic kidney disease, or unspecified chronic kidney disease; E11.22 Type 2 diabetes mellitus with diabetic chronic kidney disease; N18.3 Chronic kidney disease, stage 3 (moderate)
CPT/HCPCS: 76770

== ENCOUNTER → 2019-09-22 | Day surgery (SDC) | payer MEDICARE ==
[2019-09-18 10:26] VITALS: BMI 30.4
[~2019-09-22] MED LIST changes: -LACTATED RINGERS 1,000 ML IV SCH; +SODIUM CHLORIDE 0.9% 1,000 ML IV SCH
[2019-09-22 12:26] VITALS: RESP 16; TEMP 98.4
[2019-09-22 12:27] LABS: Glucose,Whole Blood 148 mg/dL (75-99)
[2019-09-22 15:42] VITALS: BP 162/77; PULSE 50
--- NOTE | 2019-09-22 16:34 | P.PCN ---
Preoperative Diagnosis: Diagnosis Recurrent syncope and presyncope Chronic kidney disease, diabetes Twelve-lead EKG shows sinus mechanism normal OH interval narrow QRS normal ST segments Tilt table test per protocol Baseline blood pressure 162/83 mmHg, pulse rate 57 beats a minute sinus mechanism Patient was tilted upright at an angle of 70 Immediately, his blood pressure dropped to about 120/71 mmHg He complained of mild dizziness His blood pressure remained between 100 and 120 mmHg for the next 12 minutes following which There was a further sudden drop in blood pressure to 74/43 mmHg. He felt funny in the head very sweaty and had a syncopal spell He is laid supine and his blood pressure went to 160/78 mmHg and he started feeling better Impression Dysautonomia, orthostatic hypotension syndrome with supine hypertension and orthostatic hypotension syndrome with secondary vasodepressive response Diabetic neuropathy with associated chronic kidney disease Suggest Midodrine 10 mg at 7 AM, 12 PM and 5 PM Tilt training at night with 6-8 inches wooden blocks under the legs at the head of bed Later resume Jaycob inhibitors, short-acting 12 hour JAYCOB inhibitor, enalapril 10 mg to be taken at bedtime, once at bedtime only only Avoid enalapril during the day. No a.m. dose Avoid Florinef and avoid Doxidopa
== END ==
LOC: CATHEP 11:56
PROVIDERS: ATTEND Internal Medicine Clinical Cardiac Electrophysiology
DX: I95.1 Orthostatic hypotension (principal); G90.1 Familial dysautonomia [Riley-Day]; E11.22 Type 2 diabetes mellitus with diabetic chronic kidney disease; E11.40 Type 2 diabetes mellitus with diabetic neuropathy, unspecified; N18.9 Chronic kidney disease, unspecified; R55 Syncope and collapse; I10 Essential (primary) hypertension; I49.1 Atrial premature depolarization; I47.1 Supraventricular tachycardia; E78.49 Other hyperlipidemia; Z72.0 Tobacco use; Z82.49 Family history of ischemic heart disease and other diseases of the circulatory system; Z79.82 Long term (current) use of aspirin; Z79.890 Hormone replacement therapy; Z79.4 Long term (current) use of insulin; Z79.899 Other long term (current) drug therapy; Z88.5 Allergy status to narcotic agent; Z88.0 Allergy status to penicillin
CPT/HCPCS: 93660